=== PATIENT | female | born 1955 | race Caucasian/White ===

== ENCOUNTER 2018-01-23 13:31 | Outpatient (CLI) | payer OTHER | END 2018-01-23 13:32 | disposition home or self-care (01) | LOC: BICMAMMO 13:31 | PROVIDERS: ATTEND Obstetrics & Gynecology | DX: Z12.31 Encounter for screening mammogram for malignant neoplasm of breast (principal); Z80.49 Family history of malignant neoplasm of other genital organs | CPT/HCPCS: 77063; 77067 ==

== ENCOUNTER 2019-01-23 09:48 | Outpatient (CLI) | payer MEDICARE ==
--- NOTE | 2019-01-23 11:36 | BD ---
DEXA BONE DENSITY STUDY: HISTORY: Postmenopausal. LUMBAR SPINE BMD (g/cm2) T-SCORE L1 1.081 +0.8 L2 1.101 +0.7 L3 1.30 +2.0 L4 1.43 +3.4 TOTAL 1.25 +1.9 LEFT FEMORAL NECK 0.781 -0.6 TOTAL 1.11 +1.4 IMPRESSION: Normal bone mineral density of the left femoral neck and lumbar spine. POS: [facility]
== END 2019-01-23 09:49 | disposition home or self-care (01) ==
LOC: BICMAMMO 09:48
PROVIDERS: ATTEND Family Medicine
DX: Z13.820 Encounter for screening for osteoporosis (principal); Z78.0 Asymptomatic menopausal state
CPT/HCPCS: 77080

== ENCOUNTER 2021-01-10 08:54 | Outpatient (CLI) | payer MEDICARE | END 2021-01-10 08:55 | disposition home or self-care (01) | LOC: BICMAMMO 08:54 | PROVIDERS: ATTEND Obstetrics & Gynecology | DX: Z12.31 Encounter for screening mammogram for malignant neoplasm of breast (principal); Z85.43 Personal history of malignant neoplasm of ovary | CPT/HCPCS: 77063; 77067 ==

== ENCOUNTER 2022-05-16 10:48 | Outpatient (CLI) | payer MEDICARE | END 2022-05-16 10:49 | disposition home or self-care (01) | LOC: BICMAMMO 10:48 | PROVIDERS: ATTEND Family Medicine | DX: Z12.31 Encounter for screening mammogram for malignant neoplasm of breast (principal); Z85.43 Personal history of malignant neoplasm of ovary | CPT/HCPCS: 77063; 77067 ==

== ENCOUNTER 2023-07-10 11:51 | Outpatient (CLI) | payer MEDICARE | END 2023-07-10 11:52 | disposition home or self-care (01) | LOC: BICMAMMO 11:51 | PROVIDERS: ATTEND Family Medicine | DX: Z12.31 Encounter for screening mammogram for malignant neoplasm of breast (principal); Z85.43 Personal history of malignant neoplasm of ovary | CPT/HCPCS: 77063; 77067 ==